=== PATIENT | female | born 1985 | race American Indian/Alaskan Native ===

== ENCOUNTER 2017-04-06 18:36 | Emergency (ER) | payer OTHER ==
--- NOTE | 2017-04-07 00:16 | Emergency Department Report ---
ED General Adult HPI - General Chief complaint: Pain General Stated complaint: BODY HURTS Time Seen by Provider: 04/06/17 22:52 Source: patient Mode of arrival: Ambulatory Limitations: No Limitations - History of Present Illness Initial comments: 31 yo female with no PMHX presenting to ED complaining of generalized Malaise and BL lower extremity swelling. Pt states over the last several days she has had decreased energy. She denies focal neuro deficits. She states that she has also noted BL lower extremity swelling. She denies : trauma, history of DVT/PE. Pt denies: fever/chills, headache, neck pain ,chest pain, abdominal pain, N/V/D - Related Data Previous Rx's Medication Instructions Recorded Last Taken Type Cetirizine HCl [Zyrtec] 10 mg PO DAILY #30 capsule 06/18/14 Unknown Rx Fluticasone [Flonase] 1 spray NS QDAY #1 bottle 06/18/14 Unknown Rx RX: ALBUTEROL Inhaler [ProAir HFA 2 puff IH QID PRN #2 inhalation 06/18/14 Unknown Rx Inhaler] RX: Lisinopril [Zestril TAB] 10 mg PO QDAY #30 tablet 06/18/14 Unknown Rx RX: Prednisone [predniSONE 5 mg 5 mg PO .TAPER #1 pack 06/18/14 Unknown Rx (6-Day Pack, 21 Tabs)] Fluconazole [Diflucan] 150 mg PO ONCE #1 tablet 11/11/14 Unknown Rx Ciprofloxacin HCl [Cipro] 500 mg PO Q12H #6 tab 12/03/14 Unknown Rx Fluconazole [Diflucan] 150 mg PO QDAY #2 tablet 12/03/14 Unknown Rx RX: Ciprofloxacin HCl 500 mg PO Q12HR #20 tab 05/01/15 Unknown Rx [Ciprofloxacin TAB] RX: Lisinopril [Zestril TAB] 10 mg PO QDAY #30 tablet 05/01/15 Unknown Rx RX: metFORMIN [Glucophage] 500 mg PO BID #60 tablet 05/01/15 Unknown Rx RX: metroNIDAZOLE [Flagyl TAB] 500 mg PO Q12HR #14 tab 05/01/15 Unknown Rx Ibuprofen [Motrin] 800 mg PO Q8HR PRN #30 tablet 09/23/15 Unknown Rx RX: Ketoconazole 2% [Nizoral] 1 applicatio TP QDAY #60 gm 09/23/15 Unknown Rx Sodium Chloride [Saline Nasal 2 sprays NS PRN PRN #1 bottle 09/23/15 Unknown Rx [place]] guaiFENesin/DEXTROMETHORPHAN 1 each PO BID PRN #20 tab.er.12h 09/23/15 Unknown Rx [Mucinex DM ER 600-30 mg TAB] RX: Compression Socks, Medium 1 each MC DAILY #1 each 04/07/17 Unknown Rx [Futuro Restoring] Allergies Allergy/AdvReac Type Severity Reaction Status Date / Time No Known Allergies Allergy Verified 04/06/17 18:47 ED Review of Systems ROS: Stated complaint: BODY HURTS Other details as noted in HPI Constitutional: malaise, weakness. denies: chills, fever Eyes: denies: eye pain, eye discharge, vision change ENT: denies: ear pain, throat pain Respiratory: denies: cough, shortness of breath, wheezing Cardiovascular: denies: chest pain, palpitations Endocrine: no symptoms reported Gastrointestinal: denies: abdominal pain, nausea, diarrhea Genitourinary: denies: urgency, dysuria, discharge Musculoskeletal: other (lower extremity swelling ). denies: back pain, joint swelling, arthralgia Skin: denies: rash, lesions Neurological: denies: headache, weakness, paresthesias Psychiatric: denies: anxiety, depression Hematological/Lymphatic: denies: easy bleeding, easy bruising ED Past Medical Hx - Past Medical History Hx Hypertension: Yes Hx Diabetes: Yes Additional medical history: Back pain - Surgical History Past Surgical History?: No - Social History Smoking Status: Current Every Day Smoker - Medications Home Medications: Home Medications Medication Instructions Recorded Confirmed Last Taken Type Cetirizine HCl [Zyrtec] 10 mg PO DAILY #30 capsule 06/18/14 Unknown Rx Fluticasone [Flonase] 1 spray NS QDAY #1 bottle 06/18/14 Unknown Rx RX: ALBUTEROL Inhaler [ProAir HFA 2 puff IH QID PRN #2 inhalation 06/18/14 Unknown Rx Inhaler] RX: Lisinopril [Zestril TAB] 10 mg PO QDAY #30 tablet 06/18/14 Unknown Rx RX: Prednisone [predniSONE 5 mg 5 mg PO .TAPER #1 pack 06/18/14 Unknown Rx (6-Day Pack, 21 Tabs)] Fluconazole [Diflucan] 150 mg PO ONCE #1 tablet 11/11/14 Unknown Rx Ciprofloxacin HCl [Cipro] 500 mg PO Q12H #6 tab 12/03/14 Unknown Rx Fluconazole [Diflucan] 150 mg PO QDAY #2 tablet 12/03/14 Unknown Rx RX: Ciprofloxacin HCl 500 mg PO Q12HR #20 tab 05/01/15 Unknown Rx [Ciprofloxacin TAB] RX: Lisinopril [Zestril TAB] 10 mg PO QDAY #30 tablet 05/01/15 Unknown Rx RX: metFORMIN [Glucophage] 500 mg PO BID #60 tablet 05/01/15 Unknown Rx RX: metroNIDAZOLE [Flagyl TAB] 500 mg PO Q12HR #14 tab 05/01/15 Unknown Rx Ibuprofen [Motrin] 800 mg PO Q8HR PRN #30 tablet 09/23/15 Unknown Rx RX: Ketoconazole 2% [Nizoral] 1 applicatio TP QDAY #60 gm 09/23/15 Unknown Rx Sodium Chloride [Saline Nasal 2 sprays NS PRN PRN #1 bottle 09/23/15 Unknown Rx [place]] guaiFENesin/DEXTROMETHORPHAN 1 each PO BID PRN #20 tab.er.12h 09/23/15 Unknown Rx [Mucinex DM ER 600-30 mg TAB] RX: Compression Socks, Medium 1 each MC DAILY #1 each 04/07/17 Unknown Rx [Futuro Restoring] ED Physical Exam - General Limitations: No Limitations General appearance: alert, in no apparent distress - Head Head exam: Present: atraumatic, normocephalic - Eye Eye exam: Present: normal appearance - ENT ENT exam: Present: mucous membranes moist - Neck Neck exam: Present: normal inspection - Respiratory Respiratory exam: Present: normal lung sounds bilaterally. Absent: respiratory distress - Cardiovascular Cardiovascular Exam: Present: regular rate, normal rhythm. Absent: systolic murmur, diastolic murmur, rubs, gallop - GI/Abdominal GI/Abdominal exam: Present: soft, normal bowel sounds - Extremities Exam Extremities exam: Present: normal inspection, full ROM, normal capillary refill , other (pt has mild edema in BL feet, non pitting. She has no calf tenderness, no palpable cords). Absent: pedal edema, calf tenderness - Back Exam Back exam: Present: normal inspection - Neurological Exam Neurological exam: Present: alert, oriented X3 - Psychiatric Psychiatric exam: Present: normal affect, normal mood - Skin Skin exam: Present: warm, dry, intact, normal color. Absent: rash ED Course Vital Signs 04/06/17 04/07/17 18:48 02:32 Temperature 98.6 F Pulse Rate 98 H 83 Respiratory 20 18 Rate Blood Pressure 137/86 Blood Pressure 120/67 [Left] O2 Sat by Pulse 98 100 Oximetry - Reevaluation(s) Reevaluation #1: 04/07/17 00:45 Given ultrasound department is closed, I am unable to get ultrasound of her bilateral lower extremities for possible DVT therefore I will give empiric Lovenox and have patient follow-up in the a.m. during business hours and DEPARTMENT WILL BE AVAILABLE. 04/07/17 06:39 Reevaluation #2: 04/07/17 02:08 pt resting comfortably, states her symptoms have improved ED Medical Decision Making - Lab Data Result diagrams: 04/07/17 00:06 04/07/17 00:06 - Medical Decision Making 31-year-old female presenting to the ED complaining of generalized malaise and bilateral lower extremity edema. Concerning generalized weakness at this time there is no acute findings to suggest patient's symptoms. I have counseled her to follow up with PCP for further workup. I have low suspicion for: UTI, , pneumonia. Concerning bilateral extremity edema-at this time I have low suspicion for CHF. Pt D DIMER was mildly elevated therefore she was given Lovenox in the ED and she has been instructed to follow up and ambulatory radiology for DVT study. Patient verbalized understanding of return precautions. Critical Care Time: No Critical care attestation.: If time is entered above; I have spent that time in minutes in the direct care of this critically ill patient, excluding procedure time. ED Disposition Clinical Impression: Malaise and fatigue, Edema of both feet Disposition: DC-01 TO HOME OR SELFCARE Is pt being admited?: No Does the pt Need Aspirin: No Condition: Stable Instructions: Leg Edema (ED) Prescriptions: RX: Compression Socks, Medium [Futuro Restoring] 1 each MC DAILY #1 each Referrals: PRIMARY CARE, [Primary Care Provider] - 3-5 Days RICARDO MILLS MD [Staff Physician] - 3-5 Days Forms: Work/School Release Form(ED)
[2017-04-07 00:39] LABS: Mean Corpuscular HGB Conc 31 % (30-34); Mean Corpuscular Hemoglobin 28 pg (28-32); Mean Corpuscular Volume 92 fl (79-97); Platelet Count 155 K/mm3 (140-440); Red Blood Count 4.55 M/mm3 (3.65-5.03); Red Cell Distribution Width 14.1 % (13.2-15.2); White Blood Count 6.6 K/mm3 (4.5-11.0)
[2017-04-07] MEDS ORDERED: LOVENOX SUB-Q ONE (00:44)
[2017-04-07 00:46] LABS: Alanine Aminotransferase 19 units/L (7-56); Albumin 3.6 g/dL (3.9-5); Albumin/Globulin Ratio 1.1 %; Alkaline Phosphatase 96 units/L (35-129); Anion Gap 17 mmol/L; Blood Urea Nitrogen 12 mg/dL (7-17); Calcium 8.8 mg/dL (8.4-10.2); Carbon Dioxide 24 mmol/L (22-30); Chloride 99.2 mmol/L (98-107); Glucose 205 mg/dL (65-100); Potassium 4.1 mmol/L (3.6-5.0); Sodium 136 mmol/L (137-145); Total Protein 6.8 g/dL (6.3-8.2)
[2017-04-07 00:54] LABS: Hemoglobin 12.8 gm/dl (10.1-14.3)
[2017-04-07 00:56] LABS: Hematocrit 41.8 % (30.3-42.9)
[2017-04-07 01:35] LABS: Bilirubin,Urine NEG (Negative); Blood,Urine NEG (Negative); Ketones,Urine NEG (Negative); Leukocyte Esterase,Urine TR (Negative); Mucus,Urine FEW /HPF; Nitrite,Urine NEG (Negative); Protein,Urine <15 mg/dL mg/dL (Negative)
[2017-04-07 06:01] VITALS: BP 120/67
[2017-04-07 06:43] LABS: Basophils % (Manual) 0 % (0.0-1.8); Blastocytes % (Manual) 0 %; Diff Status Complete; RBC Morphology Normal
== END 2017-04-07 02:32 | disposition home or self-care (01) ==
LOC: ED 18:36
DX: R53.83 Other fatigue (principal); R60.9 Edema, unspecified; I10 Essential (primary) hypertension; E11.9 Type 2 diabetes mellitus without complications; F17.200 Nicotine dependence, unspecified, uncomplicated
CPT/HCPCS: 36415; 80053; 81001; 81025; 83880; 85007; 85025; 85379; 96372; 99283; J1650

== ENCOUNTER 2018-10-29 23:31 | Emergency (ER) | payer OTHER ==
[2018-10-29 23:50] VITALS: BP 144/94
[2018-10-30] MEDS ORDERED: BENADRYL PO ONE (01:48)
[2018-10-30] MEDS ORDERED: TYLENOL PO ONE (01:48)
[2018-10-30] MEDS ORDERED: REGLAN PO ONE (01:48)
[2018-10-30 01:50] LABS: Bilirubin,Urine NEG (Negative); Blood,Urine NEG (Negative); Color,Urine Straw (Yellow); Protein,Urine <15 mg/dL mg/dL (Negative)
--- NOTE | 2018-10-30 01:55 | Emergency Department Report ---
ED Headache HPI - General Chief Complaint: Headache Stated Complaint: HEADACHE BACK PAIN SWOLLEN FOOT Time Seen by Provider: 10/30/18 01:47 - History of Present Illness Initial Comments: pt is a 33 y/o aaf with hx of htn , dmII, and headaches who presents for 4/10 frontal headaache x the last 3 days pain is exacerbated by movement pt pain is relieved by nothing tried. there is no n/v no dizziness no lightheadedness no n/v no photophobia, pt states this headache is in usual location and intensity as other headaches in past , pt states out of lisinopril , Timing/Duration: other (3 days ) Quality: moderate Head Injury Location: frontal Recent Head Trauma: occasional headaches Associated Symptoms: denies: confusion, fever/chills, nausea/vomiting, vision changes Allergies/Adverse Reactions: Allergies No Known Allergies Allergy (Verified 04/06/17 18:47) Home Medications: Ambulatory Orders ALBUTEROL Inhaler (OR & NICU) [ProAir HFA Inhaler] 2 puff IH QID PRN #2 inhalation 06/18/14 Cetirizine HCl [Zyrtec] 10 mg PO DAILY #30 capsule 06/18/14 Fluticasone [Flonase] 1 spray NS QDAY #1 bottle 06/18/14 Lisinopril [Zestril TAB] 10 mg PO QDAY #30 tablet 06/18/14 Prednisone [predniSONE 5 mg (6-Day Pack, 21 Tabs)] 5 mg PO .TAPER #1 pack Fluconazole [Diflucan] 150 mg PO ONCE #1 tablet 11/11/14 Ciprofloxacin HCl [Cipro] 500 mg PO Q12H #6 tab 12/03/14 Fluconazole [Diflucan] 150 mg PO QDAY #2 tablet 12/03/14 Ciprofloxacin HCl [Ciprofloxacin TAB] 500 mg PO Q12HR #20 tab 05/01/15 metroNIDAZOLE [Flagyl TAB] 500 mg PO Q12HR #14 tab 05/01/15 Ketoconazole 2% [Nizoral] 1 applicatio TP QDAY #60 gm 09/23/15 Sodium Chloride [Saline Nasal [place]] 2 sprays NS PRN PRN #1 bottle 09/23/15 guaiFENesin/DEXTROMETHORPHAN [Mucinex DM ER 600-30 mg TAB] 1 each PO BID PRN #20 tab.er.12h 09/23/15 Compression Socks, Medium [Futuro Restoring] 1 each MC DAILY #1 each 04/07/17 Ibuprofen [Motrin 800 MG tab] 800 mg PO Q8HR PRN #30 tablet 10/30/18 Lisinopril [Zestril TAB] 10 mg PO QDAY #30 tablet 10/30/18 diphenhydrAMINE [Benadryl CAP] 25 mg PO Q6HR PRN #30 capsule 10/30/18 metFORMIN [Glucophage] 500 mg PO BID #60 tablet 10/30/18 ED Review of Systems ROS: Stated complaint: HEADACHE BACK PAIN SWOLLEN FOOT Other details as noted in HPI Constitutional: denies: chills, fever Eyes: denies: eye pain, eye discharge, vision change ENT: denies: ear pain, throat pain Respiratory: denies: cough, shortness of breath, wheezing Cardiovascular: denies: chest pain, palpitations Endocrine: no symptoms reported Gastrointestinal: denies: abdominal pain, nausea, diarrhea Genitourinary: denies: urgency, dysuria, discharge Musculoskeletal: denies: back pain, joint swelling, arthralgia Skin: as per HPI Neurological: denies: headache, weakness, paresthesias Psychiatric: denies: anxiety, depression Hematological/Lymphatic: denies: easy bleeding, easy bruising ED Past Medical Hx - Past Medical History Previous Medical History?: Yes Hx Hypertension: Yes Hx Diabetes: Yes Additional medical history: Back pain - Surgical History Past Surgical History?: No - Social History Smoking Status: Current Every Day Smoker Substance Use Type: Alcohol - Medications Home Medications: Home Medications Medication Instructions Recorded Confirmed Last Taken Type ALBUTEROL Inhaler (OR & NICU) 2 puff IH QID PRN #2 inhalation 06/18/14 Unknown Rx [ProAir HFA Inhaler] Cetirizine HCl [Zyrtec] 10 mg PO DAILY #30 capsule 06/18/14 Unknown Rx Fluticasone [Flonase] 1 spray NS QDAY #1 bottle 06/18/14 Unknown Rx Lisinopril [Zestril TAB] 10 mg PO QDAY #30 tablet 06/18/14 Unknown Rx Prednisone [predniSONE 5 mg (6-Day 5 mg PO .TAPER #1 pack 06/18/14 Unknown Rx Pack, 21 Tabs)] Fluconazole [Diflucan] 150 mg PO ONCE #1 tablet 11/11/14 Unknown Rx Ciprofloxacin HCl [Cipro] 500 mg PO Q12H #6 tab 12/03/14 Unknown Rx Fluconazole [Diflucan] 150 mg PO QDAY #2 tablet 12/03/14 Unknown Rx Ciprofloxacin HCl [Ciprofloxacin 500 mg PO Q12HR #20 tab 05/01/15 Unknown Rx TAB] metroNIDAZOLE [Flagyl TAB] 500 mg PO Q12HR #14 tab 05/01/15 Unknown Rx Ketoconazole 2% [Nizoral] 1 applicatio TP QDAY #60 gm 09/23/15 Unknown Rx Sodium Chloride [Saline Nasal 2 sprays NS PRN PRN #1 bottle 09/23/15 Unknown Rx [place]] guaiFENesin/DEXTROMETHORPHAN 1 each PO BID PRN #20 tab.er.12h 09/23/15 Unknown Rx [Mucinex DM ER 600-30 mg TAB] Compression Socks, Medium [Futuro 1 each MC DAILY #1 each 04/07/17 Unknown Rx [place]] Ibuprofen [Motrin 800 MG tab] 800 mg PO Q8HR PRN #30 tablet 10/30/18 Unknown Rx Lisinopril [Zestril TAB] 10 mg PO QDAY #30 tablet 10/30/18 Unknown Rx diphenhydrAMINE [Benadryl CAP] 25 mg PO Q6HR PRN #30 capsule 10/30/18 Unknown Rx metFORMIN [Glucophage] 500 mg PO BID #60 tablet 10/30/18 Unknown Rx ED Physical Exam - General Limitations: No Limitations General appearance: alert, in no apparent distress - Head Head exam: Present: atraumatic, normocephalic - Eye Eye exam: Present: normal appearance, PERRL, EOMI Pupils: Present: normal accommodation - ENT ENT exam: Present: normal orophraynx, mucous membranes moist, TM's normal bilaterally, normal external ear exam - Neck Neck exam: Present: normal inspection, full ROM. Absent: tenderness, meningismus, lymphadenopathy, thyromegaly - Respiratory Respiratory exam: Present: normal lung sounds bilaterally. Absent: respiratory distress, wheezes, stridor, chest wall tenderness - Cardiovascular Cardiovascular Exam: Present: regular rate, normal rhythm, normal heart sounds. Absent: systolic murmur, diastolic murmur, rubs, gallop - GI/Abdominal GI/Abdominal exam: Present: soft, normal bowel sounds. Absent: tenderness, bruit, hernia - Rectal Rectal exam: Present: deferred - Extremities Exam Extremities exam: Present: normal inspection, full ROM, tenderness (right foot ), normal capillary refill. Absent: pedal edema, joint swelling, calf tenderness - Expanded Lower Extremity Exam Right Foot/Toe exam: Present: full ROM, tenderness, swelling. Absent: abrasion, laceration, ecchymosis, deformity, crepidus, dislocation, erythema, amputation, puncture wound, foreign body, calcaneal tenderness, tenderness at base of 5th metatarsal, nail avulsion, subungual hematoma Neuro vascular tendon exam: Absent: motor deficit, sensory deficit, tendon deficit Gait: Positive: observed and normal - Back Exam Back exam: Present: normal inspection, full ROM. Absent: tenderness, CVA tenderness (R), CVA tenderness (L), muscle spasm, paraspinal tenderness, vertebral tenderness, rash noted - Neurological Exam Neurological exam: Present: alert, oriented X3, CN II-XII intact, normal gait, reflexes normal. Absent: motor sensory deficit - Psychiatric Psychiatric exam: Present: normal affect, normal mood - Skin Skin exam: Present: warm, dry, intact, normal color. Absent: rash ED Course Vital Signs 10/29/18 23:46 Temperature 98.7 F Pulse Rate 99 H Respiratory 18 Rate Blood Pressure 144/94 O2 Sat by Pulse 96 Oximetry ED Medical Decision Making - Lab Data Labs 10/29/18 Unknown Urine Color Straw Urine Turbidity Clear Urine pH 6.0 Ur Specific [place] 1.036 H Urine Protein <15 mg/dl Urine Glucose (UA) >=500 Urine Ketones Neg Urine Blood Neg Urine Nitrite Neg Urine Bilirubin Neg Urine Urobilinogen 2.0 Ur Leukocyte Esterase Neg Urine WBC (Auto) 2.0 Urine RBC (Auto) 3.0 U Epithel Cells (Auto) 6.0 Urine HCG, Qual Negative - Medical Decision Making Headache is resolved pain is now 1/10, pt denies vaginal discharge no frequency no n/v no abd pain plan: tylenol, benadryl, reglan, refill lisinopril 10 mg po daily pt will follow up [facility] in 2 days pt verbalized agreement and understanding with discharge plan. pt for dc to home in stable condition ast this time. Critical care attestation.: If time is entered above; I have spent that time in minutes in the direct care of this critically ill patient, excluding procedure time. ED Disposition Clinical Impression: Headache Qualifiers: Headache type: unspecified Headache chronicity pattern: acute headache Intractability: not intractable Qualified Code(s): R51 - Headache Strain of foot, right Qualifiers: Encounter type: subsequent encounter Qualified Code(s): S96.911D - Strain of unspecified muscle and tendon at ankle and foot level, right foot, subsequent encounter Disposition: TO HOME OR SELFCARE Is pt being admited?: No Does the pt Need Aspirin: No Condition: Stable Instructions: Acute Headache (ED) Prescriptions: diphenhydrAMINE [Benadryl CAP] 25 mg PO Q6HR PRN #30 capsule PRN Reason: congestion metFORMIN [Glucophage] 500 mg PO BID #60 tablet Ibuprofen [Motrin 800 MG tab] 800 mg PO Q8HR PRN #30 tablet PRN Reason: Pain Lisinopril [Zestril TAB] 10 mg PO QDAY #30 tablet Referrals: [facility] [Outside] - 3-5 Days Forms: Work/School Release Form(ED)
[2018-10-30 02:20] LABS: HCG Qualitative,Urine Negative (Negative)
== END 2018-10-30 03:49 | disposition home or self-care (01) ==
LOC: ED 23:31
DX: S96.911A Strain of unspecified muscle and tendon at ankle and foot level, right foot, initial encounter (principal); R51 Headache; I10 Essential (primary) hypertension; Z79.899 Other long term (current) drug therapy; E11.9 Type 2 diabetes mellitus without complications; F17.200 Nicotine dependence, unspecified, uncomplicated; X58.XXXA Exposure to other specified factors, initial encounter; Y93.89 Activity, other specified; Y92.89 Other specified places as the place of occurrence of the external cause; Y99.8 Other external cause status
CPT/HCPCS: 81001; 81025; 99283

== ENCOUNTER 2019-01-13 11:59 | Emergency (ER) | payer SELFPAY ==
[2019-01-13 12:18] VITALS: BP 175/105
[2019-01-13] MEDS ORDERED: IBUPROFEN PO ONE (13:20)
[2019-01-13] MEDS ORDERED: CLEOCIN PO ONE (13:20)
--- NOTE | 2019-01-13 13:37 | Emergency Department Report ---
ED ENT HPI - General Chief complaint: Dental/Oral Stated complaint: TOOTHACHE/EAR PAIN Time Seen by Provider: 01/13/19 12:54 Source: patient Mode of arrival: Ambulatory Limitations: No Limitations - History of Present Illness Initial comments: Patient is a 33-year-old Kaylee female presenting with right sided facial pain. Patient has had the pain for the past 3 days and has noticed progressively worsening swelling to the right side of her face. Patient states the pain is 8 out of 10 in severity. Patient denies any difficulty swallowing o r breathing. Patient states she does have a bad tooth on that side however it normally is not hurting to this degree. Patient denies fevers chills nausea vomiting - Related Data Previous Rx's Medication Instructions Recorded Last Taken Type ALBUTEROL Inhaler (OR & NICU) 2 puff IH QID PRN #2 inhalation 06/18/14 Unknown Rx [ProAir HFA Inhaler] Cetirizine HCl [Zyrtec] 10 mg PO DAILY #30 capsule 06/18/14 Unknown Rx Fluticasone [Flonase] 1 spray NS QDAY #1 bottle 06/18/14 Unknown Rx Lisinopril [Zestril TAB] 10 mg PO QDAY #30 tablet 06/18/14 Unknown Rx Prednisone [predniSONE 5 mg (6-Day 5 mg PO .TAPER #1 pack 06/18/14 Unknown Rx Pack, 21 Tabs)] Fluconazole [Diflucan] 150 mg PO ONCE #1 tablet 11/11/14 Unknown Rx Ciprofloxacin HCl [Cipro] 500 mg PO Q12H #6 tab 12/03/14 Unknown Rx Fluconazole [Diflucan] 150 mg PO QDAY #2 tablet 12/03/14 Unknown Rx Ciprofloxacin HCl [Ciprofloxacin 500 mg PO Q12HR #20 tab 05/01/15 Unknown Rx TAB] metroNIDAZOLE [Flagyl TAB] 500 mg PO Q12HR #14 tab 05/01/15 Unknown Rx Ketoconazole 2% [Nizoral] 1 applicatio TP QDAY #60 gm 09/23/15 Unknown Rx Sodium Chloride [Saline Nasal 2 sprays NS PRN PRN #1 bottle 09/23/15 Unknown Rx Ord] guaiFENesin/DEXTROMETHORPHAN 1 each PO BID PRN #20 tab.er.12h 09/23/15 Unknown Rx [Mucinex DM ER 600-30 mg TAB] Compression Socks, Medium [Futuro 1 each MC DAILY #1 each 04/07/17 Unknown Rx Restoring] Ibuprofen [Motrin 800 MG tab] 800 mg PO Q8HR PRN #30 tablet 10/30/18 Unknown Rx Lisinopril [Zestril TAB] 10 mg PO QDAY #30 tablet 10/30/18 Unknown Rx diphenhydrAMINE [Benadryl CAP] 25 mg PO Q6HR PRN #30 capsule 10/30/18 Unknown Rx metFORMIN [Glucophage] 500 mg PO BID #60 tablet 10/30/18 Unknown Rx Clindamycin [Clindamycin CAP] 300 mg PO Q8H #21 cap 01/13/19 Unknown Rx HYDROcodone/APAP 5-325 [Campo 1 each PO Q6HR PRN #14 tablet 01/13/19 Unknown Rx 5/325] Ibuprofen [Motrin 800 MG tab] 800 mg PO Q8HR PRN #14 tablet 01/13/19 Unknown Rx Allergies Allergy/AdvReac Type Severity Reaction Status Date / Time No Known Allergies Allergy Verified 04/06/17 18:47 ED Dental HPI - General Chief complaint: Dental/Oral Stated complaint: TOOTHACHE/EAR PAIN Time Seen by Provider: 01/13/19 12:54 Source: patient Mode of arrival: Ambulatory Limitations: No Limitations - Related Data Previous Rx's Medication Instructions Recorded Last Taken Type ALBUTEROL Inhaler (OR & NICU) 2 puff IH QID PRN #2 inhalation 06/18/14 Unknown Rx [ProAir HFA Inhaler] Cetirizine HCl [Zyrtec] 10 mg PO DAILY #30 capsule 06/18/14 Unknown Rx Fluticasone [Flonase] 1 spray NS QDAY #1 bottle 06/18/14 Unknown Rx Lisinopril [Zestril TAB] 10 mg PO QDAY #30 tablet 06/18/14 Unknown Rx Prednisone [predniSONE 5 mg (6-Day 5 mg PO .TAPER #1 pack 06/18/14 Unknown Rx Pack, 21 Tabs)] Fluconazole [Diflucan] 150 mg PO ONCE #1 tablet 11/11/14 Unknown Rx Ciprofloxacin HCl [Cipro] 500 mg PO Q12H #6 tab 12/03/14 Unknown Rx Fluconazole [Diflucan] 150 mg PO QDAY #2 tablet 12/03/14 Unknown Rx Ciprofloxacin HCl [Ciprofloxacin 500 mg PO Q12HR #20 tab 05/01/15 Unknown Rx TAB] metroNIDAZOLE [Flagyl TAB] 500 mg PO Q12HR #14 tab 05/01/15 Unknown Rx Ketoconazole 2% [Nizoral] 1 applicatio TP QDAY #60 gm 09/23/15 Unknown Rx Sodium Chloride [Saline Nasal 2 sprays NS PRN PRN #1 bottle 09/23/15 Unknown Rx Ord] guaiFENesin/DEXTROMETHORPHAN 1 each PO BID PRN #20 tab.er.12h 09/23/15 Unknown Rx [Mucinex DM ER 600-30 mg TAB] Compression Socks, Medium [Futuro 1 each MC DAILY #1 each 04/07/17 Unknown Rx Restoring] Ibuprofen [Motrin 800 MG tab] 800 mg PO Q8HR PRN #30 tablet 10/30/18 Unknown Rx Lisinopril [Zestril TAB] 10 mg PO QDAY #30 tablet 10/30/18 Unknown Rx diphenhydrAMINE [Benadryl CAP] 25 mg PO Q6HR PRN #30 capsule 10/30/18 Unknown Rx metFORMIN [Glucophage] 500 mg PO BID #60 tablet 10/30/18 Unknown Rx Clindamycin [Clindamycin CAP] 300 mg PO Q8H #21 cap 01/13/19 Unknown Rx HYDROcodone/APAP 5-325 [Campo 1 each PO Q6HR PRN #14 tablet 01/13/19 Unknown Rx 5/325] Ibuprofen [Motrin 800 MG tab] 800 mg PO Q8HR PRN #14 tablet 01/13/19 Unknown Rx Allergies Allergy/AdvReac Type Severity Reaction Status Date / Time No Known Allergies Allergy Verified 04/06/17 18:47 ED Review of Systems ROS: Stated complaint: TOOTHACHE/EAR PAIN Other details as noted in HPI Comment: All other systems reviewed and negative ED Past Medical Hx - Past Medical History Previous Medical History?: Yes Hx Hypertension: Yes Hx Diabetes: Yes Additional medical history: Back pain - Surgical History Past Surgical History?: No - Social History Smoking Status: Current Every Day Smoker Substance Use Type: None - Medications Home Medications: Home Medications Medication Instructions Recorded Confirmed Last Taken Type ALBUTEROL Inhaler (OR & NICU) 2 puff IH QID PRN #2 inhalation 06/18/14 Unknown Rx [ProAir HFA Inhaler] Cetirizine HCl [Zyrtec] 10 mg PO DAILY #30 capsule 06/18/14 Unknown Rx Fluticasone [Flonase] 1 spray NS QDAY #1 bottle 06/18/14 Unknown Rx Lisinopril [Zestril TAB] 10 mg PO QDAY #30 tablet 06/18/14 Unknown Rx Prednisone [predniSONE 5 mg (6-Day 5 mg PO .TAPER #1 pack 06/18/14 Unknown Rx Pack, 21 Tabs)] Fluconazole [Diflucan] 150 mg PO ONCE #1 tablet 11/11/14 Unknown Rx Ciprofloxacin HCl [Cipro] 500 mg PO Q12H #6 tab 12/03/14 Unknown Rx Fluconazole [Diflucan] 150 mg PO QDAY #2 tablet 12/03/14 Unknown Rx Ciprofloxacin HCl [Ciprofloxacin 500 mg PO Q12HR #20 tab 05/01/15 Unknown Rx TAB] metroNIDAZOLE [Flagyl TAB] 500 mg PO Q12HR #14 tab 05/01/15 Unknown Rx Ketoconazole 2% [Nizoral] 1 applicatio TP QDAY #60 gm 09/23/15 Unknown Rx Sodium Chloride [Saline Nasal 2 sprays NS PRN PRN #1 bottle 09/23/15 Unknown Rx Ord] guaiFENesin/DEXTROMETHORPHAN 1 each PO BID PRN #20 tab.er.12h 09/23/15 Unknown Rx [Mucinex DM ER 600-30 mg TAB] Compression Socks, Medium [Futuro 1 each MC DAILY #1 each 04/07/17 Unknown Rx Restoring] Ibuprofen [Motrin 800 MG tab] 800 mg PO Q8HR PRN #30 tablet 10/30/18 Unknown Rx Lisinopril [Zestril TAB] 10 mg PO QDAY #30 tablet 10/30/18 Unknown Rx diphenhydrAMINE [Benadryl CAP] 25 mg PO Q6HR PRN #30 capsule 10/30/18 Unknown Rx metFORMIN [Glucophage] 500 mg PO BID #60 tablet 10/30/18 Unknown Rx Clindamycin [Clindamycin CAP] 300 mg PO Q8H #21 cap 01/13/19 Unknown Rx HYDROcodone/APAP 5-325 [Campo 1 each PO Q6HR PRN #14 tablet 01/13/19 Unknown Rx 5/325] Ibuprofen [Motrin 800 MG tab] 800 mg PO Q8HR PRN #14 tablet 01/13/19 Unknown Rx ED Physical Exam - General Limitations: No Limitations General appearance: alert, in no apparent distress - Head Head exam: Present: atraumatic, normocephalic - Expanded Head Exam Expanded 1 - swollen facial induration without fluctuance - Eye Eye exam: Present: normal appearance - ENT ENT exam: Present: mucous membranes moist - Expanded ENT Exam Expanded Mouth exam: Present: tongue normal. Absent: drooling, trismus, muffled voice, tongue elevation Teeth exam: Present: dental caries 1 - Dental Tenderness, Other (there is gingival swelling and erythema and one small area of fluctuance present within the gumline especially over tooth #5.) - Neck Neck exam: Present: normal inspection - Respiratory Respiratory exam: Present: normal lung sounds bilaterally. Absent: respiratory distress - Cardiovascular Cardiovascular Exam: Present: regular rate, normal rhythm. Absent: systolic murmur, diastolic murmur, rubs, gallop - GI/Abdominal GI/Abdominal exam: Present: soft, normal bowel sounds - Extremities Exam Extremities exam: Present: normal inspection - Back Exam Back exam: Present: normal inspection - Neurological Exam Neurological exam: Present: alert, oriented X3 - Psychiatric Psychiatric exam: Present: normal affect, normal mood - Skin Skin exam: Present: warm, dry, intact, normal color. Absent: rash ED Course Vital Signs 01/13/19 12:16 Temperature 98.1 F Pulse Rate 90 Blood Pressure 175/105 ED Medical Decision Making - Medical Decision Making Patient to be started on antibiotics and will be referred to oral surgery. Critical care attestation.: If time is entered above; I have spent that time in minutes in the direct care of this critically ill patient, excluding procedure time. ED Disposition Clinical Impression: Dental abscess, Facial cellulitis Disposition: TO HOME OR SELFCARE Is pt being admited?: No Does the pt Need Aspirin: No Condition: Stable Instructions: Dental Abscess (ED) Referrals: SUSHILA PARSONS DDS [Staff Physician] - 3-5 Days Time of Disposition: 13:38
== END 2019-01-13 13:54 | disposition home or self-care (01) ==
LOC: ED 11:59
DX: K04.7 Periapical abscess without sinus (principal); L03.211 Cellulitis of face; I10 Essential (primary) hypertension; E11.9 Type 2 diabetes mellitus without complications; F17.200 Nicotine dependence, unspecified, uncomplicated; Z79.84 Long term (current) use of oral hypoglycemic drugs
CPT/HCPCS: 99282

== ENCOUNTER 2019-12-05 13:37 | Emergency (ER) | payer OTHER ==
[2019-12-05 13:48] VITALS: BP 149/82
--- NOTE | 2019-12-05 16:37 | Emergency Department Report ---
ED General Adult HPI - General Chief complaint: Skin/Abscess/Foreign Body Stated complaint: BOIL BUTTOCK/PAIN Time Seen by Provider: 12/05/19 15:27 Source: patient Mode of arrival: Ambulatory Limitations: No Limitations - History of Present Illness Initial comments: This 34-year-old female with a history of hypertension and diabetes controlled with medication who presents the ED complaining of some pain to the right buttock for the past 4 to 5 days. Patient states she is standing a little pus discharge on her panties when she takes them off. Patient denies fever/chills/nausea vomiting/abdominal pain/shortness of breath - Related Data Previous Rx's Medication Instructions Recorded Last Taken Type Amoxicillin [Trimox CAP] 500 mg PO BID #20 capsule 04/09/19 Unknown Rx Clindamycin [Clindamycin CAP] 300 mg PO Q8H #21 cap 12/05/19 Unknown Rx Ibuprofen [Motrin 800 MG tab] 800 mg PO Q8HR PRN #30 tablet 12/05/19 Unknown Rx Sulfamethoxazole/Trimethoprim 1 each PO BID #20 tablet 12/05/19 Unknown Rx [Bactrim DS TAB] lisinopriL [Zestril TAB] 10 mg PO QDAY #30 tablet 12/05/19 Unknown Rx metFORMIN [Glucophage] 500 mg PO BID #60 tablet 12/05/19 Unknown Rx Allergies Allergy/AdvReac Type Severity Reaction Status Date / Time No Known Allergies Allergy Verified 04/06/17 18:47 ED Review of Systems ROS: Stated complaint: BOIL BUTTOCK/PAIN Other details as noted in HPI Comment: All other systems reviewed and negative ED Past Medical Hx - Past Medical History Previous Medical History?: Yes Hx Hypertension: Yes Hx Diabetes: Yes Additional medical history: Back pain - Surgical History Past Surgical History?: No - Social History Smoking Status: Current Every Day Smoker Substance Use Type: Prescribed - Medications Home Medications: Home Medications Medication Instructions Recorded Confirmed Last Taken Type Amoxicillin [Trimox CAP] 500 mg PO BID #20 capsule 04/09/19 Unknown Rx Clindamycin [Clindamycin CAP] 300 mg PO Q8H #21 cap 12/05/19 Unknown Rx Ibuprofen [Motrin 800 MG tab] 800 mg PO Q8HR PRN #30 tablet 12/05/19 Unknown Rx Sulfamethoxazole/Trimethoprim 1 each PO BID #20 tablet 12/05/19 Unknown Rx [Bactrim DS TAB] lisinopriL [Zestril TAB] 10 mg PO QDAY #30 tablet 12/05/19 Unknown Rx metFORMIN [Glucophage] 500 mg PO BID #60 tablet 12/05/19 Unknown Rx ED Physical Exam - General Limitations: No Limitations General appearance: alert, in no apparent distress - Head Head exam: Present: atraumatic, normocephalic - Eye Eye exam: Present: normal appearance - ENT ENT exam: Present: mucous membranes moist - Neck Neck exam: Present: normal inspection - Respiratory Respiratory exam: Present: normal lung sounds bilaterally. Absent: respiratory distress - Cardiovascular Cardiovascular Exam: Present: regular rate, normal rhythm. Absent: systolic murmur, diastolic murmur, rubs, gallop - GI/Abdominal GI/Abdominal exam: Present: soft, normal bowel sounds - Rectal Rectal exam: Present: mass (Nonfluctuant, nonerythematous, about 2 to 3 cm i n diameter consistent with cellulitis,), tenderness - Extremities Exam Extremities exam: Present: normal inspection - Back Exam Back exam: Present: normal inspection, full ROM - Neurological Exam Neurological exam: Present: alert, oriented X3 - Psychiatric Psychiatric exam: Present: normal affect, normal mood - Skin Skin exam: Present: warm, dry, intact, normal color. Absent: rash ED Course Vital Signs 12/05/19 13:45 Temperature 98.3 F Pulse Rate 91 H Respiratory 20 Rate Blood Pressure 149/82 O2 Sat by Pulse 98 Oximetry ED Medical Decision Making - Medical Decision Making 34-year-old female who presents with cellulitis of the right buttock. Discussed antibiotic therapy prophylaxis for bacterial infection. Discussed complete dose of antibiotics. Discussed with patient to follow-up with primary care physician in 3 to 5 days Vitals are normal patient is in no distress Critical care attestation.: If time is entered above; I have spent that time in minutes in the direct care of this critically ill patient, excluding procedure time. ED Disposition Clinical Impression: Cellulitis of right buttock Disposition: - TO HOME OR SELFCARE Is pt being admited?: No Does the pt Need Aspirin: No Condition: Stable Instructions: Cellulitis (ED) Additional Instructions: Make sure to follow up with the primary care physician as discussed. If you have any worsening symptoms or develop new symptoms please return to ED immediately. Prescriptions: Sulfamethoxazole/Trimethoprim [Bactrim DS TAB] 1 each PO BID #20 tablet Clindamycin [Clindamycin CAP] 300 mg PO Q8H #21 cap metFORMIN [Glucophage] 500 mg PO BID #60 tablet Ibuprofen [Motrin 800 MG tab] 800 mg PO Q8HR PRN #30 tablet PRN Reason: Pain, Moderate (4-6) lisinopriL [Zestril TAB] 10 mg PO QDAY #30 tablet Referrals: PRIMARY CARE, [Primary Care Provider] - 3-5 Days [facility] [Outside] - 3-5 Days [facility] [Outside] - 3-5 Days [facility] [place] [Outside] - 3-5 Days Forms: Work/School Release Form(ED) Time of Disposition: 16:48
== END 2019-12-05 17:12 | disposition home or self-care (01) ==
LOC: ED 13:37
DX: L03.317 Cellulitis of buttock (principal); I10 Essential (primary) hypertension; E11.9 Type 2 diabetes mellitus without complications; F17.200 Nicotine dependence, unspecified, uncomplicated; Z79.899 Other long term (current) drug therapy
CPT/HCPCS: 99282

== ENCOUNTER 2019-12-16 13:17 | Outpatient (CLI) | payer OTHER ==
[2019-12-16] MEDS ORDERED: LIDOCAINE (4%) 40 MG/ML TOPICAL SOLN 50 ML BOTTLE TP ONE (13:18)
== END 2019-12-16 13:18 | disposition home or self-care (01) ==
LOC: WOUND 13:17
PROVIDERS: ATTEND Surgery
DX: L02.31 Cutaneous abscess of buttock (principal); E11.628 Type 2 diabetes mellitus with other skin complications; I10 Essential (primary) hypertension; F17.210 Nicotine dependence, cigarettes, uncomplicated
CPT/HCPCS: 11042; 82962; G0463; 99204; 99214